=== PATIENT | male | born 1955 | race Caucasian/White ===

== ENCOUNTER 2016-10-12 12:43 | Inpatient (IN) | payer MEDICARE, BC ==
[~2016-10-12] VITALS: Ht 170.2 cm; Wt 70.0 kg
[2016-10-12] VITALS (29 sets, daily range): BP systolic 88–117; BP diastolic 60–75; PULSE 53–70; RESP 10–20
[~2016-10-12 12:43] MED LIST: BUTA1TAB6 PO; CALC0.255 PO; FERR325T28 PO; FERROUS GL325 ( 36 ) PO; HUMULIN N SQ; LACT10SO26 PO; NOVOLIN
[2016-10-12] MEDS ORDERED: ASPI81TA3 PO (14:06)
[2016-10-12] MEDS ORDERED: CLOP300T15 PO (14:06)
[2016-10-12] MEDS ORDERED: NIFE10CA19 PO (14:06)
[2016-10-12] MEDS ORDERED: PANT40TA3 PO ×2 (14:13)
[2016-10-12] MEDS ORDERED: PROP20TA4 PO (14:13)
[2016-10-12] MEDS ORDERED: HEPARIN 1000 UNITS/ML 10 ML INJ ONE (14:35)
[2016-10-12] MEDS ORDERED: MIDAZOLAM 1 MG/ML 2 ML INJ ONE (14:35)
[2016-10-12] MEDS ORDERED: LIDOCAINE 1% (MDV) 20 ML INJ ONE (14:35)
[2016-10-12] MEDS ORDERED: FENTAnyl 50 MCG/ML VIAL ONE (14:35)
[2016-10-12] MEDS ORDERED: TICAGRELOR 90 MG TABLET ONE (15:38)
[2016-10-12] MEDS ORDERED: SOD CHLORIDE 0.9% 500 ML ONE (15:38)
[2016-10-12] MEDS ORDERED: BIVALIRUDIN 250MG /NS 50 ML 50 ML IVPB ONE (15:38)
[2016-10-12] MEDS ORDERED: ASPIRIN 325 MG TAB ONE (15:39)
[2016-10-12] MEDS ORDERED: BIVALIRUDIN 250MG /NS 50 ML 50 ML IVPB SCH (16:03)
--- NOTE | 2016-10-12 16:03 | OPR ---
Date/Time of Note Date/Time of Note DATE: 10/12/16 TIME: 15:46 Operative Report Procedure Date: Oct 12, 2016 Preoperative Diagnosis Status post non-ST elevation myocardial infarction and ischemic cardiomyopathy. Postoperative Diagnosis Severe stenosis of the proximal left anterior descending artery which is subtotal 99%. Severe stenosis of the mid left anterior descending artery just before previously deployed stent which is about 80-90%. Operation Performed Left heart catheterization and coronary angiogram. Percutaneous coronary intervention with deployment of intracoronary stent in proximal left anterior descending artery 3.0 x 12 millimeter drug-eluting stent. Percutaneous coronary intervention with deployment of intracoronary stent in mid left anterior descending artery 2.75 x 15 mm drug-eluting stent. Surgeon: CARLEEN ROQUE MD Anesthesia Type: moderate sedation Tourniquet Time: None Estimated Blood Loss: 0 - 10 ml's Transfusion Required: no Specimen: none Grafts/Implants: none Complications: no Pt Condition Post Procedure: stable Disposition: other (Intensive care unit) Procedure Description After appropriate informed consent was taken. Patient was brought into cardiac catheterization lab. The right femoral artery was cannulated with 6 Sinhala sheath. Bilateral coronary arteries and angiogram was performed. Left heart catheterization was done and pressures were recorded. Coronary angiography revealed severe stenosis of the proximal left anterior descending artery which is subtotal injected 99%. There is another stenosis in the mid left anterior descending artery just before the previously deployed stent estimated about 80-90%. Left circumflex coronary artery the dominant artery. Left circumflex coronary artery and its branches have mild to moderate plaquing only without any flow obstructive coronary artery disease. Right coronary artery disease small nondominant vessel. Moderate plaquing in the middle region only. Percutaneous coronary intervention was performed in proximal left descending artery lesion was predilated and 3.0x 12 mm long drug-eluting stent was deployed up to 14 atmospheric pressure with excellent result. Percutaneous coronary intervention was performed in mid left anterior descending artery. The lesion was predilated and 2.75x 15 mm long drug-eluting stent was deployed up to 40 her pelvic pressure with excellent result and complete resolution of stenosis. JUNITO-3 blood flow was established. Angio-Seal was deployed to the right femoral artery puncture site with excellent hemostasis. Patient was given Angiomax throughout the procedure and in the and loaded with Brilinta and aspirin. Patient tolerated procedure very well without any immediate complication and left the cardiac catheterization lab in a stable state with intact distal pedal pulses. Copies To: CC: CARLEEN ROQUE MD; RANDA BEAVERS M.D.; LIYA WHALEY MD, RAVI MD Oct 12, 2016 15:56
[2016-10-12] MEDS ORDERED: NITROGLYCERIN (SL) 0.4 MG TAB SL PRN (16:30)
[2016-10-12] MEDS ORDERED: OXYCODONE/ACETAMINOPHEN (5/325) TAB PO PRN (16:30)
[2016-10-12] MEDS ORDERED: ONDANSETRON 4 MG INJ IV PRN (16:30)
[2016-10-12] MEDS ORDERED: TICAGRELOR 90 MG TABLET PO ONE (16:30)
--- NOTE | 2016-10-12 16:30 | PN ---
Date/Time of Note Date/Time of Note DATE: 10/12/16 TIME: 16:20 Assessment/Plan VTE Prophylaxis VTE Prophylaxis Intervention: other Lines/Catheters [facility] Saline Lock Assessment/Plan Chief Complaint/Hosp Course Patient doing overall very well. No further chest pain dizziness or syncope. Problems: Assessment/Plan Impression 1. Acute non-ST elevation myocardial infarction. 2. Ischemic cardiomyopathy with anteroseptal hypokinesis ejection fraction of about 35%. 3. Hypertension. 4. Diabetes mellitus type 2. 5. Hyperlipidemia. 6. End-stage renal disease on chronic hemodialysis. 7. Anemia of chronic disease. Plan 61-year-old male with multiple medical problem had acute non-ST elevation myocardial infarction. Echocardiogram revealed anteroseptal hypokinesis and ischemic cardiomyopathy ejection fraction about 35%. Plan is to perform left heart catheterization and coronary angiography to evaluate for coronary disease and further revascularization procedures as guided. Subjective 24 Hr Interval Summary Free Text/Dictation 61-year-old male with history of hypertension, dyslipidemia, diabetes mellitus, end-stage renal disease on chronic hemodialysis. Patient was initially admitted to [facility] with syncope. Patient ruled in for acute non-ST elevation myocardial infarction and echocardiogram revealed large anteroseptal hypokinesis with ejection fraction of about 35%. Patient got transferred to the [facility] for left heart catheterization and coronary intervention as guided. At present patient is awake alert comfortable denies any further chest pain or shortness of breath. No palpitations, dizziness or further syncope. Constitutional: improved Eyes: no complaints ENT: no complaints Respiratory: no complaints Cardiovascular: no complaints Gastrointestinal: no complaints Genitourinary: no complaints Musculoskeletal: no complaints Skin: no complaints Neurologic: no complaints Endocrine: no complaints Lymphatic: no complaints Psychological: no complaints Immunologic: no complaints Exam/Review of Systems Vital Signs Vitals Vital Signs Date Time Temp Pulse Resp B/P Pulse Ox O2 Delivery O2 Flow Rate FiO2 10/12/16 13:25 98.6 16 117/71 Room Air Medications Medications Current Medications Miscellaneous Information (* Miscellaneous Pharmacy Order) Hold all Metformin ... ONCE ONCE XX ; Start 10/12/16 at 16:30; Stop 10/12/16 at 16:31; Status UNV Aspirin (Halfprin) 81 mg DAILY PO ; Start 10/13/16 at 09:00; Status UNV Ticagrelor (Brilinta) 180 mg ONCE ONCE PO ; Start 10/12/16 at 16:30; Stop 10/12 at 16:31; Status UNV Ticagrelor 90 mg 90 mg BID PO ; Start 10/12/16 at 21:00; Status UNV Bivalirudin (Angiomax) 50 ml @ 3.5 mls/hr [id number] IVPB ; Start 10/12/16 at 16: 03; Stop 10/13/16 at 06:20 Nitroglycerin (Nitroglycerin (Sl Tab) 0.4 Mg) 1 tab Q5M PRN SL CHEST PAIN; Start 10/12/16 at 16:30; Status UNV Oxycodone/ Acetaminophen (Percocet (5/ 325)) 1 tab Q4H PRN PO REPORTED NON- CARDIAC PAIN 4-7; Start 10/12/16 at 16:30; Status UNV Ondansetron HCl (Zofran Inj) 4 mg Q4H PRN IV NAUSEA AND/OR VOMITING; Start at 16:30; Status UNV Atorvastatin Calcium (Lipitor) 80 mg DAILY@21 PO ; Start 10/12/16 at 21:00; Status UNV Copies To: CC: CARLEEN ROQUE MD; RANDA BEAVERS M.D.; LIYA WHALEY MD, RAVI MD Oct 12, 2016 16:29
--- NOTE | 2016-10-12 18:31 | PN ---
Date/Time of Note Date/Time of Note DATE: 10/12/16 TIME: 18:29 Assessment/Plan VTE Prophylaxis VTE Prophylaxis Intervention: other Lines/Catheters IV Catheter Type (from Nrs): Saline Lock Urinary Cath still in place: No Assessment/Plan Chief Complaint/Hosp Course [id number] a/p esrd htn dm s/p cath and pci plan hd Problems: Subjective 24 Hr Interval Summary Respiratory: no complaints Cardiovascular: no complaints Gastrointestinal: no complaints Exam/Review of Systems Vital Signs Vitals Vital Signs Date Time Temp Pulse Resp B/P Pulse Ox O2 Delivery O2 Flow Rate FiO2 10/12/16 16:00 55 10/12/16 13:25 98.6 16 117/71 Room Air Exam Neck: supple Respiratory: clear to auscultation Cardiovascular: regular rate and rhythm Gastrointestinal: soft Musculoskeletal: nl extremities to inspection Extremities: normal pulses Medications Medications Current Medications Miscellaneous Information (* Miscellaneous Pharmacy Order) Hold all Metformin ... ONCE XX Last administered on 10/12/16t 16:53; Admin Dose 1 EA; Start at 16:30; Stop 10/14/16 at 16:29 Aspirin (Halfprin) 81 mg DAILY PO ; Start 10/13/16 at 09:00 Ticagrelor 90 mg 90 mg BID PO ; Start 10/12/16 at 21:00 Bivalirudin (Angiomax) 50 ml @ 3.5 mls/hr [id number] IVPB ; Start 10/12/16 at 16: 03; Stop 10/13/16 at 06:20 Nitroglycerin (Nitroglycerin (Sl Tab) 0.4 Mg) 1 tab Q5M PRN SL CHEST PAIN; Start 10/12/16 at 16:30 Oxycodone/ Acetaminophen (Percocet (5/ 325)) 1 tab Q4H PRN PO REPORTED NON- CARDIAC PAIN 4-7; Start 10/12/16 at 16:30 Ondansetron HCl (Zofran Inj) 4 mg Q4H PRN IV NAUSEA AND/OR VOMITING; Start at 16:30 Atorvastatin Calcium (Lipitor) 80 mg DAILY@21 PO ; Start 10/12/16 at 21:00 LIYA WHALEY MD Oct 12, 2016 18:30
[2016-10-12] MEDS: ALBUMIN HUMAN 25% 100 ML IV SCH ×2 (19:00→20:55)
[2016-10-12] MEDS: ATORVASTATIN 80 MG TAB PO SCH (21:52)
[2016-10-12] MEDS: TICAGRELOR 90 MG TABLET PO SCH (21:53)
[2016-10-12] MEDS ORDERED: GLUCOSE GEL 15 GRAM TUBE PO PRN ×2 (22:00)
[2016-10-12] MEDS ORDERED: GLUCAGON 1 MG INJ IM PRN (22:00)
[2016-10-12] MEDS ORDERED: DEXTROSE 50% 50 ML SYRINGE IV PRN ×2 (22:00)
[2016-10-12] MEDS ORDERED: GLUCOSE GEL 15 GRAM TUBE BUCCAL PRN (22:00)
[2016-10-13] VITALS (30 sets, daily range): BP systolic 81–124; BP diastolic 53–76; PULSE 58–71; RESP 10–23
[2016-10-13] MEDS ORDERED: ACCU-CHEK XX SCH (02:00)
[2016-10-13] MEDS: ACCU-CHEK XX SCH (02:24)
[2016-10-13 06:33] LABS: ABNORMAL IP MESSAGE 1; BASOPHILS % 0.5 % (0.0-2.0); EOSINOPHILS # 0.1 10^3/ul (0.0-0.5); HEMATOCRIT 30.3 % (42.0-52.0); HEMOGLOBIN 10.5 g/dl (14.0-18.0); LYMPHOCYTES # 1.1 10^3/ul (0.8-2.9); LYMPHOCYTES % 17.8 % (15.0-51.0); MEAN CORPUSCULAR HEMOGLOBIN 34.4 pg (29.0-33.0); MEAN CORPUSCULAR HGB CONC 34.7 g/dl (32.0-37.0); MEAN CORPUSCULAR VOLUME 99.3 fl (82.0-101.0); MEAN PLATELET VOLUME 11.4 fl (7.4-10.4); MONOCYTE # 0.7 10^3/ul (0.3-0.9); MONOCYTES % 11.3 % (0.0-11.0); NEUTROPHILS % 68.2 % (39.0-77.0); PLATELET COUNT 77 10^3/UL (140-415); POSITIVE DIFF @See below; RED BLOOD COUNT 3.05 10^6/ul (4.70-6.10); RED CELL DISTRIBUTION WIDTH 13.3 % (11.5-14.5); WHITE BLOOD COUNT 6.4 10^3/ul (4.8-10.8)
[2016-10-13 07:01] LABS: CALCIUM 8.9 mg/dl (8.4-10.2); CREATININE 7.44 mg/dl (0.61-1.24); POTASSIUM 4.2 mmol/L (3.5-5.1)
[2016-10-13 07:19] LABS: CK-MB 14.3 ng/ml (0.0-2.4)
[2016-10-13 07:21] LABS: TROPONIN-I 5.78 ng/ml (0.00-0.12)
[2016-10-13] MEDS ORDERED: SOD CHLORIDE 0.9% 250 ML IV ONE ×2 (07:30→09:00)
[2016-10-13] MEDS: INSULIN ASPART [NOVOLOG] 3 ML PEN SC SCH ×4 (07:49→20:13)
--- NOTE | 2016-10-13 07:56 | HP ---
DATE OF ADMISSION: 10/12/2016 HISTORY OF PRESENT ILLNESS: The patient is an elderly male who has a history of ESRD, history of ascites, history of paracentesis in the past. Patient has history of AV fistula in the upper extremity. Patient goes to Dialysis Center Sunday, , Sunday. Patient has end-stage renal disease, diabetes mellitus, thrombocytopenia, hyponatremia, cirrhosis of the liver in the past, history of paracentesis, history of CAD, history of coronary angiogram and stent placement in the past. Admission to Hospital and transferred to [facility] for coronary angiogram. Patient underwent coronary angiogram and PCI and is monitored in the ICU. Will be undergoing hemodialysis. Denies any chest pain per patient this morning. PAST MEDICAL HISTORY: ESRD, hypertension, diabetes mellitus, cirrhosis of the liver, history of ascites, history of paracentesis, history of CAD, history of coronary angiogram and stent placement in the past, history of NV. As per patient, history of cardiac cath in the past. ALLERGIES: HE DENIES. FAMILY HISTORY: He denies. SOCIAL HISTORY: He denies. MEDICATIONS: 1. Patient is on aspirin. 2. ppi 3. Calcitriol. 4. Plavix. 5. Iron sulfate. 6. Lactulose. 7. Nifedipine. 8. Protonix. 9. Propranolol. 10. Insulin. REVIEW OF SYSTEMS: HEENT: Unremarkable. RESPIRATORY: No shortness of breath. CARDIOVASCULAR: No chest pain or bruits. ABDOMEN: Unremarkable. EXTREMITIES: No swelling. CENTRAL NERVOUS SYSTEM: Unremarkable, except as mentioned above, status post syncopal episode in the office center in the hospital. PHYSICAL EXAMINATION: GENERAL: Patient is awake and alert, responsive. VITAL SIGNS: Blood pressure 140/74. HEENT: Head is atraumatic, normocephalic. Pupils equal, reactive to light. Patient had pale conjunctivae noticed. NECK: Supple. LUNGS: Clear. CARDIOVASCULAR: S1 and S2 normal. ABDOMEN: Soft, bowel sounds positive. No palpable mass or hepatosplenomegaly. EXTREMITIES: There is no cyanosis or clubbing. Edema positive. CENTRAL NERVOUS SYSTEM: Patient is awake, alert with no focal deficits. DATA: Sodium 133, potassium 3.7, BUN 57, creatinine 5.06. IMPRESSION: 1. Status post coronary angiogram and percutaneous coronary intervention. 2. End-stage renal disease. 3. Hypertension. 4. Patient had myocardial infarction, had admission to _ Hospital. 5. Diabetes mellitus. 6. History of cirrhosis. 7. History of ascites. 8. History of paracentesis. 9. History of thrombocytopenia. 10. Anemia. . PLAN: Continue renal/diabetic diet. Follow the recommendations from Cardiology. Hemodialysis orders were done. Dictated By: Jerrod Membreno MD /hanh/mei /Document#: [id number]
--- NOTE | 2016-10-13 08:00 | RADRPT ---
PROCEDURE: XR Chest. CLINICAL INDICATION: Dyspnea TECHNIQUE: Single frontal chest x-ray. COMPARISON: 05/12/2013 and 04/14/2013 FINDINGS: No acute infiltrate, pleural effusion or pneumothorax is identified. There is stable borderline car diomegaly. Aortic atherosclerotic calcification is noted. The osseous structures are unremarkable. IMPRESSION: 1. No evidence of acute cardiopulmonary process. 2. Stable borderline cardiomegaly and aortic atherosclerosis. RPTAT: QQ .Lamberto Fergsuon MD, MD Date Time Electronically viewed and signed by .Lamberto Ferguson MD, MD on 10/13/2016 08:00 .R/
[2016-10-13] MEDS: ASPIRIN (EC) 81 MG TAB PO SCH (09:27)
[2016-10-13] MEDS: TICAGRELOR 90 MG TABLET PO SCH ×2 (09:28→20:19)
--- NOTE | 2016-10-13 13:52 | RADRPT ---
Vent Rate: 60 bpm RR Interval: 0 msec [place] Interval: 140 msec QRS Duration: 102 msec QT Interval: 506 msec QTC Interval: 506 msec P-R-T [place]: 8 - 29 - 10 degrees Normal sinus rhythm Nonspecific ST and T wave abnormality Prolonged QT Abnormal ECG Electronically Signed By: Josh Ching [id number]
--- NOTE | 2016-10-13 14:06 | PN ---
Date/Time of Note Date/Time of Note DATE: 10/13/16 TIME: 14:03 Assessment/Plan VTE Prophylaxis VTE Prophylaxis Intervention: SCD's Lines/Catheters IV Catheter Type (from [facility]): Saline Lock Urinary Cath still in place: No Assessment/Plan Chief Complaint/Hosp Course 1.ESRD 2. CAD 3. Hypertension. 4. Diabetes mellitus type 2, controlled. 5. Hyperlipidemia. 6. S/p cardiac stent placement 7. Anemia of chronic disease. Problems: Assessment/Plan 1. Possible transfer to telemetry 2. Pt had recent hypotension 3. continue telemonitoring Subjective 24 Hr Interval Summary Constitutional: no complaints Eyes: no complaints Cardiovascular: no complaints Gastrointestinal: no complaints Exam/Review of Systems Vital Signs Vitals Vital Signs Date Time Temp Pulse Resp B/P Pulse Ox O2 Delivery O2 Flow Rate FiO2 10/13/16 12:00 61 10/13/16 12:00 98.0 11 98/76 100 Room Air Intake and Output 10/12/16 10/12/16 10/13/16 14:59 22:59 06:59 Intake Total 840 ml 60 ml Output Total 2000 ml 0 ml Balance -1160 ml 60 ml Exam Constitutional: alert, oriented Respiratory: clear to auscultation Cardiovascular: regular rate and rhythm Gastrointestinal: soft Genitourinary - Male: nl scrotum Extremities: other (AV fistula left arm) Results Result Diagram: 10/13/16 0606 10/13/16 0606 Results 24 hrs Laboratory Tests Test 10/12/16 21:00 10/13/16 02:14 10/13/16 06:06 10/13/16 06:38 Bedside Glucose 215 128 168 White Blood Count 6.4 Red Blood Count 3.05 L Hemoglobin 10.5 L Hematocrit 30.3 L Mean Corpuscular Volume 99.3 Mean Corpuscular Hemoglobin 34.4 H Mean Corpuscular Hemoglobin Concent 34.7 Red Cell Distribution Width 13.3 Platelet Count 77 L Mean Platelet Volume 11.4 H Neutrophils % 68.2 Lymphocytes % 17.8 Monocytes % 11.3 H Eosinophils % 2.0 Basophils % 0.5 Nucleated Red Blood Cells % 0.0 Neutrophils # (Manual) 4 Lymphocytes # 1.1 Monocytes # 0.7 Eosinophils # 0.1 Basophils # 0.0 Nucleated Red Blood Cells # 0.0 Sodium Level 135 Potassium Level 4.2 Chloride Level 94 L Carbon Dioxide Level 26 Anion Gap 19 H Blood Urea Nitrogen 50 H Creatinine 7.44 H Glucose Level 142 Calcium Level 8.9 Creatine Kinase 224 H Creatine Kinase Index 6.4 Creatinine Kinase MB (Mass) 14.30 H Troponin I 5.780 *H Test 10/13/16 12:15 Bedside Glucose 138 Medications Medications Current Medications Miscellaneous Information (* Miscellaneous Pharmacy Order) Hold all Metformin ... ONCE XX Last administered on 10/12/16 16:53; Admin Dose 1 EA; Start at 16:30; Stop 10/14/16 at 16:29 Aspirin (Halfprin) 81 mg DAILY PO Last administered on 10/13/16 09:27; Admin Dose 81 MG; Start 10/13/16 at 09:00 Ticagrelor (Brilinta) 90 mg BID PO Last administered on 10/13/16 09:28; Admin Dose 90 MG; Start 10/12/16 at 21:00 Nitroglycerin (Nitroglycerin (Sl Tab) 0.4 Mg) 1 tab Q5M PRN SL CHEST PAIN; Start 10/12/16 at 16:30 Oxycodone/ Acetaminophen (Percocet (5/ 325)) 1 tab Q4H PRN PO REPORTED NON- CARDIAC PAIN 4-7; Start 10/12/16 at 16:30 Ondansetron HCl (Zofran Inj) 4 mg Q4H PRN IV NAUSEA AND/OR VOMITING Last administered on 10/13/16 06:32; Admin Dose 4 MG; Start 10/12/16 at 16:30 Atorvastatin Calcium (Lipitor) 80 mg DAILY@21 PO Last administered on 21:52; Admin Dose 80 MG; Start 10/12/16 at 21:00 Diagnostic Test (Pha) (Accu-Chek) 1 ea 02 XX Last administered on 10/13/16 02: 24; Admin Dose 1 EA; Start 10/13/16 at 02:00 Miscellaneous Information 1 ea NOTE XX ; Start 10/12/16 at 22:00 Glucose (Glutose) 15 gm Q15M PRN PO DECREASED GLUCOSE; Start 10/12/16 at 22:00 Glucose (Glutose) 22.5 gm Q15M PRN PO DECREASED GLUCOSE; Start 10/12/16 at 22: 00 Dextrose (D50w Syringe) 25 ml Q15M PRN IV DECREASED GLUCOSE; Start 10/12/16 at 22:00 Dextrose (D50w Syringe) 50 ml Q15M PRN IV DECREASED GLUCOSE; Start 10/12/16 at 22:00 Glucagon (Glucagen) 1 mg Q15M PRN IM DECREASED GLUCOSE; Start 10/12/16 at 22:00 Glucose (Glutose) 15 gm Q15M PRN BUCCAL DECREASED GLUCOSE; Start 10/12/16 at 22 :00 RHIANNON BUTTS Oct 13, 2016 14:05
--- NOTE | 2016-10-13 16:18 | PN ---
Date/Time of Note Date/Time of Note DATE: 10/13/16 TIME: 16:01 Assessment/Plan VTE Prophylaxis VTE Prophylaxis Intervention: ambulation Lines/Catheters IV [facility] Saline Lock Urinary Cath still in place: No Assessment/Plan Chief Complaint/Hosp Course Patient doing overall very well. No further chest pain dizziness or syncope. Problems: Assessment/Plan Assessment 1. Coronary artery disease status post acute non-ST elevation myocardial infarction. 2. Severe coronary disease, status post percutaneous coronary intervention with intracoronary stent deployment x 2 in proximal and mid left anterior descending artery. 3. History of hypertension. 4. History of diabetes mellitus. 5. History of dyslipidemia. 6. End-stage renal disease on chronic hemodialysis. Plan Patient doing very well now. Patient has some dizziness and hypotension this morning resolved with intravenous saline. Status post intracoronary stent 2 in proximal and mid left anterior descending artery yesterday. Right groin with out any complication. Plan is to ambulate patient as tolerated. Will check troponin I again tomorrow. If troponins are decreasing and patient remained asymptomatic and patient can be discharged home and can have outpatient cardiac follow-up. We will follow closely. Subjective 24 Hr Interval Summary Free Text/Dictation 61-year-old male with history of hypertension, diabetes mellitus, end-stage renal disease on chronic hemodialysis. Patient to have history of intracoronary stent about 5 years ago. Patient was initially admitted to [facility] with acute non-ST elevation myocardial infarction. Patient was transferred to the [facility] for left heart catheterization and coronary angiography. Coronary angiography revealed that patient has 2 severe critical lesions before the previously deployed stent. Both lesions were dilated and stented with drug-eluting stents with excellent results. Patient doing very well overall now. No chest pain or shortness of breath. Patient was hypotensive this morning and has lightheadedness and dizziness. Given 500 cc of normal saline with improvement of blood pressure and resolution of all symptoms. At present patient is doing very well without chest pain or shortness of breath and dizziness has resolved. Right groin has good pulse without any hematoma or aneurysm. Troponin I has been elevated today to about 5 weeks can be seen post intervention particularly in dialysis patient. Constitutional: no complaints Eyes: no complaints ENT: no complaints Respiratory: no complaints Cardiovascular: lightheadedness Gastrointestinal: no complaints Genitourinary: no complaints Musculoskeletal: no complaints Skin: no complaints Neurologic: no complaints Endocrine: no complaints Lymphatic: no complaints Psychological: no complaints Immunologic: no complaints Exam/Review of Systems Vital Signs Vitals Vital Signs Date Time Temp Pulse Resp B/P Pulse Ox O2 Delivery O2 Flow Rate FiO2 10/13/16 12:00 61 10/13/16 12:00 98.0 11 98/76 100 Room Air Intake and Output 10/12/16 10/12/16 10/13/16 15:00 23:00 07:00 Intake Total 840 ml 60 ml Output Total 2000 ml 0 ml Balance -1160 ml 60 ml Exam Constitutional: alert, oriented, well developed Psych: no complaints Head: normocephalic Eyes: EOMI, nl conjunctiva, nl lids Neck: non-tender, supple Respiratory: clear to auscultation, normal air movement Cardiovascular: nl pulses, regular rate and rhythm Gastrointestinal: nl liver, spleen, non-tender, soft Musculoskeletal: nl extremities to inspection Extremities: normal pulses Neurological: WE[employer]ER II-XII intact, nl mental status Skin: nl turgor Lymph: nl lymph nodes Results Result Diagram: 10/13/16 0606 10/13/16 0606 Results 24 hrs Laboratory Tests Test 10/12/16 21:00 10/13/16 02:14 10/13/16 06:06 10/13/16 06:38 Bedside Glucose 215 128 168 White Blood Count 6.4 Red Blood Count 3.05 L Hemoglobin 10.5 L Hematocrit 30.3 L Mean Corpuscular Volume 99.3 Mean Corpuscular Hemoglobin 34.4 H Mean Corpuscular Hemoglobin Concent 34.7 Red Cell Distribution Width 13.3 Platelet Count 77 L Mean Platelet Volume 11.4 H Neutrophils % 68.2 Lymphocytes % 17.8 Monocytes % 11.3 H Eosinophils % 2.0 Basophils % 0.5 Nucleated Red Blood Cells % 0.0 Neutrophils # (Manual) 4 Lymphocytes # 1.1 Monocytes # 0.7 Eosinophils # 0.1 Basophils # 0.0 Nucleated Red Blood Cells # 0.0 Sodium Level 135 Potassium Level 4.2 Chloride Level 94 L Carbon Dioxide Level 26 Anion Gap 19 H Blood Urea Nitrogen 50 H Creatinine 7.44 H Glucose Level 142 Calcium Level 8.9 Creatine Kinase 224 H Creatine Kinase Index 6.4 Creatinine Kinase MB (Mass) 14.30 H Troponin I 5.780 *H Test 10/13/16 12:15 Bedside Glucose 138 Medications Medications Current Medications Miscellaneous Information (* Miscellaneous Pharmacy Order) Hold all Metformin ... ONCE XX Last administered on 10/12/16 16:53; Admin Dose 1 EA; Start at 16:30; Stop 10/14/16 at 16:29 Aspirin (Halfprin) 81 mg DAILY PO Last administered on 10/13/16 09:27; Admin Dose 81 MG; Start 10/13/16 at 09:00 Ticagrelor (Brilinta) 90 mg BID PO Last administered on 10/13/16 09:28; Admin Dose 90 MG; Start 10/12/16 at 21:00 Nitroglycerin (Nitroglycerin (Sl Tab) 0.4 Mg) 1 tab Q5M PRN SL CHEST PAIN; Start 10/12/16 at 16:30 Oxycodone/ Acetaminophen (Percocet (5/ 325)) 1 tab Q4H PRN PO REPORTED NON- CARDIAC PAIN 4-7; Start 10/12/16 at 16:30 Ondansetron HCl (Zofran Inj) 4 mg Q4H PRN IV NAUSEA AND/OR VOMITING Last administered on 10/13/16 06:32; Admin Dose 4 MG; Start 10/12/16 at 16:30 Atorvastatin Calcium (Lipitor) 80 mg DAILY@21 PO Last administered on 21:52; Admin Dose 80 MG; Start 10/12/16 at 21:00 Diagnostic Test (Pha) (Accu-Chek) 1 ea 02 XX Last administered on 10/13/16 02: 24; Admin Dose 1 EA; Start 10/13/16 at 02:00 Miscellaneous Information 1 ea NOTE XX ; Start 10/12/16 at 22:00 Glucose (Glutose) 15 gm Q15M PRN PO DECREASED GLUCOSE; Start 10/12/16 at 22:00 Glucose (Glutose) 22.5 gm Q15M PRN PO DECREASED GLUCOSE; Start 10/12/16 at 22: 00 Dextrose (D50w Syringe) 25 ml Q15M PRN IV DECREASED GLUCOSE; Start 10/12/16 at 22:00 Dextrose (D50w Syringe) 50 ml Q15M PRN IV DECREASED GLUCOSE; Start 10/12/16 at 22:00 Glucagon (Glucagen) 1 mg Q15M PRN IM DECREASED GLUCOSE; Start 10/12/16 at 22:00 Glucose (Glutose) 15 gm Q15M PRN BUCCAL DECREASED GLUCOSE; Start 10/12/16 at 22 :00 Copies To: CC: CARLEEN ROQUE MD, RAVI MD Oct 13, 2016 16:11
[2016-10-13] MEDS: ATORVASTATIN 80 MG TAB PO SCH (20:13)
[2016-10-14] VITALS (22 sets, daily range): BP systolic 102–158; BP diastolic 57–80; PULSE 68–79; RESP 11–24
[2016-10-14] MEDS: ACCU-CHEK XX SCH (02:00)
[2016-10-14] MEDS: INSULIN ASPART [NOVOLOG] 3 ML PEN SC SCH ×2 (07:52→12:08)
[2016-10-14] MEDS: ASPIRIN (EC) 81 MG TAB PO SCH (09:24)
[2016-10-14] MEDS: TICAGRELOR 90 MG TABLET PO SCH (09:25)
--- NOTE | 2016-10-14 14:57 | PDOCDIS ---
Discharge Instructions DIAGNOSIS Discharge Diagnosis S/p angioplasty CONDITION Patient Condition: Good HOME CARE INSTRUCTIONS: Diet Instructions: Low Fat /CholesterolSpecial Diet: Cardiac diet ACTIVITY: Activity Restrictions: Slowly Increase Activity FOLLOW UP/APPOINTMENTS Follow-up Plan dr Robledo 1 week SCHOOL/WORK RELEASE May return to School/Work with: With Restrictions RHIANNON BUTTS Oct 14, 2016 14:57
[2016-10-14] MEDS ORDERED: NIT4 SL (15:01)
[2016-10-14] MEDS ORDERED: TICA90TA PO (15:01)
--- NOTE | 2016-10-14 15:06 | PN ---
Date/Time of Note Date/Time of Note DATE: 10/14/16 TIME: 15:04 Assessment/Plan VTE Prophylaxis VTE Prophylaxis Intervention: ambulation Lines/Catheters IV Catheter Type (from [facility]): [facility] Urinary Cath still in place: No Assessment/Plan Chief Complaint/Hosp Course 1. ESRD 2. CAD 3. Hypertension. 4. Diabetes mellitus type 2, controlled. 5. Hyperlipidemia. 6. S/p cardiac stent placement 7. Anemia of chronic disease. Problems: Assessment/Plan 1. Discharge home 2. Subjective 24 Hr Interval Summary Constitutional: no complaints Cardiovascular: chest pain, no complaints, No edema, No lightheadedness, No orthopenea, No other, No palpitations, No paroxysmal nocturnal dyspnea Gastrointestinal: constipation, No blood, No decreased appetite, No diarrhea, No flatus, No nausea, No no complaints, No other, No pain, No passing stool, No vomiting Genitourinary: no complaints Exam/Review of Systems Vital Signs Vitals Vital Signs Date Time Temp Pulse Resp B/P Pulse Ox O2 Delivery O2 Flow Rate FiO2 10/14/16 12:00 77 10/14/16 11:10 18 10/14/16 11:00 154/76 100 Room Air 10/14/16 08:00 98.5 Intake and Output 10/13/16 10/13/16 10/14/16 15:00 23:00 07:00 Intake Total 1160 ml 250 ml 0 ml Output Total 0 ml 0 ml Balance 1160 ml 250 ml 0 ml Exam Constitutional: alert, oriented ENMT: nl external ears & nose Neck: supple Respiratory: clear to auscultation Cardiovascular: regular rate and rhythm Results Result Diagram: 10/13/16 0606 10/13/16 0606 Results 24 hrs Laboratory Tests Test 10/13/16 16:56 10/13/16 20:12 10/14/16 04:50 10/14/16 07:49 Bedside Glucose 166 134 148 Troponin I 29.500 *H Test 10/14/16 12:05 Bedside Glucose 159 Medications Medications Current Medications Miscellaneous Information (* Miscellaneous Pharmacy Order) Hold all Metformin ... ONCE XX Last administered on 10/13/16t 16:20; Admin Dose 1 EA; Start at 16:30; Stop 10/14/16 at 16:29 Aspirin (Halfprin) 81 mg DAILY PO Last administered on 10/14/16 09:24; Admin Dose 81 MG; Start 10/13/16 at 09:00 Ticagrelor (Brilinta) 90 mg BID PO Last administered on 10/14/16 09:25; Admin Dose 90 MG; Start 10/12/16 at 21:00 Nitroglycerin (Nitroglycerin (Sl Tab) 0.4 Mg) 1 tab Q5M PRN SL CHEST PAIN; Start 10/12/16 at 16:30 Oxycodone/ Acetaminophen (Percocet (5/ 325)) 1 tab Q4H PRN PO REPORTED NON- CARDIAC PAIN 4-7; Start 10/12/16 at 16:30 Ondansetron HCl (Zofran Inj) 4 mg Q4H PRN IV NAUSEA AND/OR VOMITING Last administered on 10/13/16 06:32; Admin Dose 4 MG; Start 10/12/16 at 16:30 Atorvastatin Calcium (Lipitor) 80 mg DAILY@21 PO Last administered on 20:13; Admin Dose 80 MG; Start 10/12/16 at 21:00 Diagnostic Test (Pha) (Accu-Chek) 1 ea 02 XX Last administered on 10/13/16 02: 24; Admin Dose 1 EA; Start 10/13/16 at 02:00 Miscellaneous Information 1 ea NOTE XX ; Start 10/12/16 at 22:00 Glucose (Glutose) 15 gm Q15M PRN PO DECREASED GLUCOSE; Start 10/12/16 at 22:00 Glucose (Glutose) 22.5 gm Q15M PRN PO DECREASED GLUCOSE; Start 10/12/16 at 22: 00 Dextrose (D50w Syringe) 25 ml Q15M PRN IV DECREASED GLUCOSE; Start 10/12/16 at 22:00 Dextrose (D50w Syringe) 50 ml Q15M PRN IV DECREASED GLUCOSE; Start 10/12/16 at 22:00 Glucagon (Glucagen) 1 mg Q15M PRN IM DECREASED GLUCOSE; Start 10/12/16 at 22:00 Glucose (Glutose) 15 gm Q15M PRN BUCCAL DECREASED GLUCOSE; Start 10/12/16 at 22 :00 RHIANNON BUTTS Oct 14, 2016 15:06
--- NOTE | 2016-10-14 18:53 | DS ---
Date/Time of Note Date/Time of Note DATE: 10/14/16 TIME: 18:49 Discharge Summary Admission/Discharge Info Admit Date/Time Oct 12, 2016 at 16:09 Discharge Date/Time Oct 14, 2016 at 15:50 Discharge Diagnosis S/p angioplasty Patient Condition: Good Consults Dr Robledo and his associates Procedures LHC and stents placement Hx of Present Illness Pt was admitted with chest pain, non stemi HI, has hx of ESRD and dyslipidemia. Underwent LHC and stents placement. Experienced hypotension on POD 1, was discharged home with blood thinners and set up outpatient hD Hospital Course 1. ESRD 2. CAD 3. Hypertension. 4. Diabetes mellitus type 2, controlled. 5. Hyperlipidemia. 6. S/p cardiac stent placement 7. Anemia of chronic disease. Home Meds Active Scripts Ticagrelor* (Brilinta*) 90 Mg Tablet, 90 MG PO BID for 30 Days, TAB Prov:RHIANNON BUTTS 10/14/16 Nitroglycerin* (Nitrostat*) 0.4 Mg Tab.subl, 1 TAB SL Q5M Y for CHEST PAIN for 30 Days Prov:RHIANNON BUTTS 10/14/16 Reported Medications Propranolol Hcl* (Propranolol Hcl*) 20 Mg Tablet, 20 MG PO DAILY, TAB 10/12/16 Pantoprazole* (Protonix*) 40 Mg Tablet.dr, 40 MG PO DAILY, TAB 10/12/16 Nifedipine* (Procardia*) 10 Mg Capsule, 60 MG PO DAILY, CAP 10/12/16 Clopidogrel Bisulfate* (Plavix*) 300 Mg Tab, 75 MG PO ONCE, TAB 10/12/16 Aspirin* (Aspirin* Chew) 81 Mg Tab.chew, 81 MG PO DAILY, TAB.CHEW 10/12/16 [Humulin N] No Conflict Check, 5 SQ PM 05/12/13 [Humulin N ] No Conflict Check, 10 SQ AM 05/12/13 Ferrous Gluconate* (Ferrous Gluconate*) 325 Mg Tablet, 325 MG PO BID 05/12/13 Lactulose* (Constulose*) 10 G/15 Ml Solution, 10 G PO TID 04/11/13 Calcitriol* (Rocaltrol*) 0.25 Mcg Capsule, 0.5 MCG PO DAILY 04/11/13 [Novolin] No Conflict Check 04/11/13 Butalbital/Aspirin/Caffeine (Uoj-Tnelbjrn-Hmcrueidtl Tab) 1 Tab Tablet, 1 TAB PO DAILY 04/11/13 Discontinued Reported Medications Pantoprazole* (Protonix*) 40 Mg Tablet.dr, 40 MG PO BID, TAB 10/12/16 Ferrous Gluconate (Ferrous Gluconate) 325 Mg Tablet, 325 MG PO BID 04/11/13 Primary Care Provider Jerrod Trinh Pending Labs Laboratory Tests Test 10/13/16 20:12 10/14/16 04:50 10/14/16 07:49 10/14/16 12:05 Bedside Glucose 134mg/dL (70-220) 148mg/dL (70-220) 159mg/dL (70-220) Troponin I 29.500ng/ml (0.00-0.12) RHIANNON BUTTS Oct 14, 2016 18:53
== END 2016-10-14 15:50 | disposition home or self-care (01) | DRG 246 ==
LOC: CCL 12:43 → ICU 16:09 → CCL 16:09
PROVIDERS: ADMIT Internal Medicine Nephrology; ATTEND Internal Medicine Nephrology
PROC: B211YZZ Fluoroscopy of Multiple Coronary Arteries using Other Contrast (ICD-10-PCS; 2016-10-12)
PROC: 3E033PZ Introduction of Platelet Inhibitor into Peripheral Vein, Percutaneous Approach (ICD-10-PCS; 2016-10-12)
PROC: 5A1D60Z (ICD-10-PCS; 2016-10-12)
PROC: 027135Z Dilation of Coronary Artery, Two Arteries with Two Drug-eluting Intraluminal Devices, Percutaneous Approach (ICD-10-PCS; principal; 2016-10-12 14:30)
PROC: 4A023N7 Measurement of Cardiac Sampling and Pressure, Left Heart, Percutaneous Approach (ICD-10-PCS; 2016-10-12 14:30)
DX: I21.4 Non-ST elevation (NSTEMI) myocardial infarction (principal); N18.6 End stage renal disease; I95.9 Hypotension, unspecified; I12.0 Hypertensive chronic kidney disease with stage 5 chronic kidney disease or end stage renal disease; E11.22 Type 2 diabetes mellitus with diabetic chronic kidney disease; I25.10 Atherosclerotic heart disease of native coronary artery without angina pectoris; I25.5 Ischemic cardiomyopathy; E78.5 Hyperlipidemia, unspecified; D63.8 Anemia in other chronic diseases classified elsewhere; Z99.2 Dependence on renal dialysis; Z79.4 Long term (current) use of insulin; Z95.5 Presence of coronary angioplasty implant and graft; Z79.02 Long term (current) use of antithrombotics/antiplatelets; Z79.82 Long term (current) use of aspirin
CPT/HCPCS: 71010; 80048; 82550; 82553; 82962; 84484; 85025; 87081; 90935; 93005; 93458; C1725; C1760; C1876; C1887; C1894; C9600; J0583; J1644; J1815; J2250; J2405; J3010; J7040; P9047

== ENCOUNTER 2018-10-22 14:45 | Emergency (ER) | payer MEDICARE, BC ==
[~2018-10-22] VITALS: Ht 167.6 cm; Wt 88.5 kg
[~2018-10-22 14:45] MED LIST changes: +ASPI-903 PO; +CLOP300T15 PO; -FERROUS GL325 ( 36 ) PO; +NIFE10CA PO; +NITR0.4T39 SL; +PANT40TA3 PO; +PROP20TA4 PO; +TICA90TA PO
[2018-10-22 15:07] VITALS: Ht 167.6 cm; Wt 88.5 kg
[2018-10-22] MEDS ORDERED: LIDOCAINE 1% (MPF) 5 ML VIAL ONE (17:51)
[2018-10-22 18:20] VITALS: BP 143/63; PULSE 77; RESP 16
== END 2018-10-22 18:45 | disposition home or self-care (01) ==
LOC: E/R 14:45
DX: R18.8 Other ascites (principal); Z79.4 Long term (current) use of insulin; Z79.82 Long term (current) use of aspirin; Z98.890 Other specified postprocedural states
CPT/HCPCS: 85025; 85610